=== PATIENT | male | born 1940 | race Caucasian/White ===

== ENCOUNTER 2020-01-28 16:35 | Inpatient (IN) | payer MEDICARE, BC ==
--- NOTE | 2020-01-28 16:56 | ED ---
General Adult HPI - General Chief complaint: Recheck/Abnormal Lab/Rx Stated complaint: abd distention Time Seen by Provider: 01/28/20 16:45 Source: patient, EMS, RN notes reviewed, old records reviewed Mode of arrival: EMS Limitations: physical limitation - History of Present Illness Initial comments: This is a 79-year-old male who was transferred to us from [facility]. Patient has a history of renal failure and ascites. Patient was transferred because they had no one can do a paracentesis and the physician there believe the patient needed a paracentesis. Patient states the belly is so big when he lays down it makes it difficult for him to breathe. Patient I dialysis today at dialysis sitting in a chair he had a very hard time breathing so they sent him to the hospital after dialysis. Patient states she's feeling little bit better now but he still wants to have a paracentesis. Patient denies any recent fever chills or cough per patient denies any chest pain or palpitations. Patient denies any lightheadedness or dizziness. No nausea vomiting diarrhea. Review of Systems ROS Statement: Those systems with pertinent positive or pertinent negative responses have been documented in the HPI. ROS Other: All systems not noted in ROS Statement are negative. Past Medical History Past Medical History: Diabetes Mellitus, Dialysis Past Surgical History: Adenoidectomy, Cardiac Valve Replacement, Coronary Bypass/CABG, Tonsillectomy Smoking Status: Former smoker Past Alcohol Use History: Rare Past Drug Use History: None Reported General Exam - General Exam Comments Initial Comments: GENERAL: Patient is well-developed and well-nourished. Patient is nontoxic and well- hydrated and is in mild distress. ENT: Neck is soft and supple. No significant lymphadenopathy is noted. Oropharynx is clear. Moist mucous membranes. Neck has full range of motion without eliciting any pain. EYES: The sclera were anicteric and conjunctiva were pink and moist. Extraocular movements were intact and pupils were equal round and reactive to light. Eyelids were unremarkable. PULMONARY: Unlabored respirations. Good breath sounds bilaterally. No audible rales rhonchi or wheezing was noted. CARDIOVASCULAR: There is a regular rate and rhythm without any murmurs gallops or rubs. ABDOMEN: Patient's abdomen is consistent with ascites. SKIN: Skin is clear with no lesions or rashes and otherwise unremarkable. NEUROLOGIC: Patient is alert and oriented x3. Cranial nerves II through XII are grossly intact. Motor and sensory are also intact. Normal speech, volume and content. Symmetrical smile. MUSCULOSKELETAL: Normal extremities with adequate strength and full range of motion. 2+ edema bilaterally LYMPHATICS: No significant lymphadenopathy is noted PSYCHIATRIC: Normal psychiatric evaluation. Limitations: physical limitation Course Vital Signs 01/28/20 16:42 Temperature 97.9 F Pulse Rate 79 Respiratory 18 Rate Blood Pressure 100/56 O2 Sat by Pulse 100 Oximetry Medical Decision Making - Medical Decision Making I spoke with our physicians they agreed to admit Disposition Clinical Impression: Ascites, Dyspnea Disposition: ADMITTED IP TO THIS HOSP Referrals: Rita Fontenot MD [Primary Care Provider] - 1-2 days Time of Disposition: 16:56
[2020-01-28] MEDS ORDERED: NALOXONE 0.4 MG/ML 1 ML VIAL IV PRN (18:19)
--- NOTE | 2020-01-28 18:37 | P.HPIM ---
History of Present Illness H&P Date: 01/28/20 Chief Complaint: Shortness of breath 79-year-old male with history of diabetes type 2, hypertension, ascites, congestive heart failure, gout, end-stage renal disease on dialysis Friday, Friday and Friday presented to [facility] from [facility] for urgent paracentesis. Patient states that he gets paracentesis approximately once a month, last time was approximately a month ago. Patient states that laying flat makes it difficult for him to breathe and that he has to lay on his side to feel better. During dialysis today he was started breath as well. Because of that he was sent to [facility] from dialysis. Patient denies any recent fever chills or cough, no chest pain or palpitations. Patient denies any lightheadedness or dizziness. No nausea vomiting diarrhea. Records reviewed from [facility] revealed pulse oximetry of 95% on room air. CBC showed hemoglobin 11, hematocrit 37, platelet count 125,000, creatinine 2.2, sodium 131, lipase 98. CT of the abdomen and pelvis showed large right-sided pleural effusion, consolidation and atelectatic changes in the right lung base. Significant lung volume loss on the right hemothorax. Cardiomegaly. Massive amount of fluids in the peritoneum cavity surrounding the liver and spleen and extending down to the iliac vessels, splenic artery and renal vessels. No free intraperitoneal air. No bowel obstruction. Review of Systems Complete review of system performed, pertinent positives per HPI, otherwise negative Past Medical History Past Medical History: Coronary Artery Disease (CAD), Heart Failure, Diabetes Mellitus, Dialysis Past Surgical History: Adenoidectomy, Cardiac Valve Replacement, Coronary Bypass/CABG, Pacemaker, Tonsillectomy Smoking Status: Former smoker Past Alcohol Use History: Rare Past Drug Use History: None Reported Medications and Allergies Allergies Allergy/AdvReac Type Severity Reaction Status Date / Time No Known Allergies Allergy Verified 01/28/20 18:07 Physical Exam Vitals: Vital Signs Temp Pulse Resp BP Pulse Ox 01/28/20 16:42 97.9 F 79 18 100/56 100 Intake and Output 01/28/20 01/28/20 01/28/20 06:59 14:59 22:59 Other: Weight 79.379 kg Constitutional: No acute distress, conversant, pleasant Eyes:Anicteric sclerae, moist conjunctiva, no lid-lag, PERRLA, ENMT: Oropharynx clear, no erythema, exudates Neck: Supple, FROM, no masses, or JVD, No carotid bruits, No thyromegaly Lungs: Clear to auscultation, Clear to percussion, Normal respiratory effort, no accessory muscle use Cardiovascular: Heart regular in rate and rhythm, No murmurs, gallops, or rubs, No peripheral edema Abdominal: Distended, Nontender, no guarding, rebound or rigidity, Normoactive bowel sounds, No hepatomegaly, No splenomegaly, No palpable mass Skin: Normal temperature, tone, texture, turgor, no induration, No subcutaneous nodules, No rash, lesions, No ulcers Extremities: No digital cyanosis, No clubbing, Pedal pulses intact and symmetrical, Radial pulses intact and symmetrical, No calf tenderness Psychiatric: Alert and oriented to person, place and time, appropriate affect, intact judgement Neuro: Muscles Strength 5/5 in all 4 extremities, Sensation to light touch grossly present throughout, Cranial nerves II-XII grossly intact, no focal sensory deficits Assessment and Plan Plan: Shortness of breath Likely secondary to worsening ascites with right pleural effusion. We'll try diuresis with Lasix 40 mg IV twice a day. Monitor electrolytes Worsening ascites It was unclear to me why patient has the ascites, he states that it is secondary to his bad heart. He denies liver disease. IR to perform paracentesis in a.m. Diabetes type 2 Continue Lantus 23 units daily Add sliding scale insulin with blood sugar checks every before meals and at bedtime Essential hypertension Continue BP meds Stable Coronary artery disease Gout Congestive heart failure, unknown type End-stage renal disease Status post artificial valve All stable Resume meds Patient admitted to observation, expected length of stay less than 2 midnights.
[2020-01-28 20:06] LABS: INR 1.6 (<1.2); Prothrombin Time 15.9 sec (9.0-12.0)
[2020-01-28] MEDS ORDERED: WARFARIN 5 MG TAB PO ONE ×2 (20:30→21:00)
[2020-01-28] MEDS ORDERED: INSULIN DETEMIR (LEVEMIR) 100 UNIT/ML SYR SQ SCH (21:00)
[2020-01-28 21:12] LABS: Glucose,Whole Blood 179 mg/dL (75-99)
[2020-01-28] MEDS: FUROSEMIDE 10 MG/ML 4 ML VIAL IV SCH (22:29)
[2020-01-28] MEDS: INSULIN ASPART (NovoLOG) 100 UNIT/ML VIAL SQ SCH (22:30)
[2020-01-28] MEDS: INSULIN DETEMIR (LEVEMIR) 100 UNIT/ML SYR SQ SCH (22:38)
[2020-01-29 06:08] LABS: HCT 35.1 % (39.0-53.0); HGB 10.8 gm/dL (13.0-17.5); Hypochromasia Marked; MCH 34.2 pg (25.0-35.0); MCHC 30.8 g/dL (31.0-37.0); MCV 111.1 fL (80.0-100.0); Macrocytosis Marked; Mean Platelet Volume 7.3; Platelet Count 137 k/uL (150-450); RBC 3.16 m/uL (4.30-5.90); RDW 14.3 % (11.5-15.5)
[2020-01-29 07:11] LABS: Eosinophils # (M) 0.24 k/uL (0-0.7); Neutrophils # (M) 4.56 k/uL (1.3-7.7); Neutrophils % (M) 76 %; Nucleated Red Blood Cells 0 /100 WBC (0-0); Total Cells Counted 100
[2020-01-29] MEDS: INSULIN ASPART (NovoLOG) 100 UNIT/ML VIAL SQ SCH ×4 (07:19→20:00)
[2020-01-29 07:22] LABS: Glucose,Whole Blood 50 mg/dL (75-99)
[2020-01-29 07:36] LABS: Glucose,Whole Blood 75 mg/dL (75-99)
[2020-01-29] MEDS: FUROSEMIDE 10 MG/ML 4 ML VIAL IV SCH ×2 (07:44→19:58)
[2020-01-29 09:31] LABS: African American GFR (CKD) 21.6 (60.0-200.0); Anion Gap 5.1 mmol/L (4.00-12.00); BUN/Creat Ratio 7.33 Ratio (12.00-20.00); Carbon Dioxide 30.9 mmol/L (21.6-31.8); Non-African American GFR(CKD) 18.6 (60.0-200.0); Phosphorus 3.6 mg/dL (2.4-5.1); Potassium 4.9 mmol/L (3.5-5.5)
[2020-01-29 09:39] LABS: INR 1.33 (0.90-1.11); Prothrombin Time 14.1 sec (9.9-11.9)
--- NOTE | 2020-01-29 11:29 | P.NPCON ---
History of Present Illness - Reason for Consult end stage renal disease - History of Present Illness Reason for consultation: End-stage renal disease History of present illness: A slight patient is a 79-year-old male seen in consultation for end-stage renal disease. He is maintained on hemodialysis on Friday schedule. Right chest permacath. Patient has an AV fistula which is not completely matured yet. Patient recently moved from [place]. Patient has history of systolic CHF with ejection fraction of 25% status post AICD placement. Patient's blood pressure tends to run low and is maintained on midodrine outpatient. Additionally he gets paracentesis about once a month. Patient states he's due for paracentesis now but was unable to get it done outpatient. He was advised to come to the hospital from the dialysis unit. He is currently sitting up in bed. Does complain of abdominal fullness. Oral intake is fair. No vomiting or diarrhea. No fever or chills. No chest pain or shortness of breath. He did receive hemodialysis yesterday. Vital signs are stable. General: The patient appeared well nourished and normally developed. HEENT: Head exam is unremarkable. Neck is without jugular venous distension. LUNGS: Breath sounds decreased. HEART: Rate and Rhythm are regular. ABDOMEN: Soft, distention noted. EXTREMITITES: Trace edema. Past Medical History Past Medical History: Coronary Artery Disease (CAD), Heart Failure, Diabetes Mellitus, Dialysis, Eye Disorder, Renal Disease Additional Past Medical History / Comment(s): Diabetes diagnosed 2012 Started on Metformin and 4 years later on insulin. Renal Failure diagnosed 2012 Started Hemodialysis with fistula right brachial placed at that time However, per pt this has not been utilized "My dialysis is completed on Fri- & Friday at [facility] in [place] per Dr Mahmood - They use the right jugular catheter". Heart Failure diagnosed 7 or 8 yrs ago under [facility] [employer] in [place] Since moving to [place] saw [facility] Dr Armstrong recently had an ECHO with EF results: 30% per pt. . History of Any Multi-Drug Resistant Organisms: None Reported Past Surgical History: Adenoidectomy, Cardiac Valve Replacement, Coronary Bypass/CABG, Heart Catheterization With Stent, Pacemaker, Tonsillectomy Additional Past Surgical History / Comment(s): Tonsils & Adnoids removd 194. Angioplasty with stent placement unknown year of placement (Multiple stents). Jaw resection years ago. Appendectomy- 1950. CABG 2009 in [facility]. Aortic Valve Replacement 1999. Implantable Cardiac Defibrillator and PAcemaker 2014 Janiya Past Anesthesia/Blood Transfusion Reactions: No Reported Reaction Date of Last Stent Placement:: Unknown Type of Cardiac Device: AICD Device Placement Date:: 2014 Past Psychological History: No Psychological Hx Reported Smoking Status: Former smoker Past Alcohol Use History: Rare Past Drug Use History: None Reported - Past Family History Father Family Medical History: Cancer Mother Family Medical History: Coronary Artery Disease (CAD) Medications and Allergies Home Medications Medication Instructions Recorded Confirmed Type Albuterol Sulfate [Ventolin HFA] 1 - 2 puff INHALATION RT-Q6H PRN 01/28/20 01/28/20 History Atorvastatin Calcium [Lipitor] 40 mg PO HS 01/28/20 01/28/20 History Bee Pollen 550 mg PO DAILY 01/28/20 01/28/20 History Carvedilol [Coreg] 3.125 mg PO BID 01/28/20 01/28/20 History Cholecalciferol [Vitamin D3 (25 1,000 unit PO HS 01/28/20 01/28/20 History Mcg = 1000 Iu)] Furosemide [Lasix] 40 mg PO BID PRN 01/28/20 01/28/20 History Insulin Glargine,Hum.rec.anlog 23 unit SQ HS 01/28/20 01/28/20 History [Lantus Solostar] Midodrine HCl [ProAmatine] 10 mg PO TID PRN 01/28/20 01/28/20 History Multivitamins, Thera [Multivitamin 1 tab PO DAILY 01/28/20 01/28/20 History (formulary)] Warfarin Sodium 2.5 mg PO SUMOTUWETHSA 01/28/20 01/28/20 History allopurinoL [Zyloprim] 100 mg PO DAILY 01/28/20 01/28/20 History hydrOXYzine HCL [Atarax] 25 mg PO TID PRN 01/28/20 01/28/20 History metOLazone [Zaroxolyn] 5 mg PO DAILY PRN 01/28/20 01/28/20 History Allergies Allergy/AdvReac Type Severity Reaction Status Date / Time No Known Allergies Allergy Verified 01/28/20 18:07 Physical Exam Vitals: Vital Signs Temp Pulse Pulse Resp BP BP Pulse Ox 01/29/20 07:00 98 F 70 20 103/60 95 01/29/20 00:10 97.6 F 71 16 118/70 98 01/28/20 22:55 20 01/28/20 21:41 97.6 F 67 18 117/66 97 01/28/20 21:00 96 20 01/28/20 19:19 97.9 F 70 18 101/58 100 01/28/20 17:49 70 18 101/58 100 01/28/20 16:49 70 18 102/53 100 01/28/20 16:42 97.9 F 79 18 100/56 100 Intake and Output 01/28/20 01/29/20 01/29/20 22:59 06:59 14:59 Intake Total 240 Output Total 200 Balance 40 Intake: Oral 240 Output: Urine 200 Other: # Voids 0 # Bowel Movements 0 Weight 79.379 kg 89.1 kg Results - Lab Results Most recent lab results Calcium 8.0 mg/dL (8.7-10.3) L 01/29/20 05:28 Phosphorus 3.6 mg/dL (2.4-5.1) 01/29/20 05:28 Magnesium 2.0 mg/dL (1.5-2.4) 01/29/20 05:28 01/29/20 05:28 01/29/20 05:28 Assessment and Plan Plan: Assessment: 1. End-stage renal disease maintained on hemodialysis on Friday schedule via permacath. He does have a maturing AV fistula. 2. Acute on chronic systolic CHF with ejection fraction of 25% status post AICD placement. 3. Ascites requiring paracentesis monthly. 4. Chronic hypotension maintained on midodrine. 5. Diabetes mellitus. Plan: Hemodialysis tomorrow due to holiday schedule. Check abdominal ultrasound. Plan for paracentesis per interventional radiology. I will give him 25 g of albumin pre-and post-paracentesis. Patient will also be given a standing order for paracentesis to be done outpatient. Thank you for the consultation. I will continue to follow the patient with you during his hospital stay.
[2020-01-29 11:31] LABS: Glucose,Whole Blood 181 mg/dL (75-99)
[2020-01-29] MEDS: MIDODRINE 5 MG TAB PO SCH ×2 (12:30→17:18)
[2020-01-29] MEDS ORDERED: HEPARIN SODIUM,PORCINE 5,000 UNIT/ML 1 ML VIAL IV PRN (15:52)
[2020-01-29] MEDS ORDERED: HEPARIN SOD,PORK IN 0.45% NACL 25,000 UNIT in 0.45% NACL 1 250ML.BAG IV SCH (16:00)
--- NOTE | 2020-01-29 16:02 | P.PN ---
Subjective Progress Note Date: 01/29/20 Patient is doing fairly well today. He was sitting at the side of the bed when I saw him. He reported having difficulty breathing and his abdomen is very distended. Objective - Vital Signs Vital signs: Vital Signs Temp 97.5 F L 01/29/20 12:20 Pulse 70 01/29/20 12:20 Resp 18 01/29/20 12:20 BP 104/63 01/29/20 12:20 Pulse Ox 100 01/29/20 12:20 Intake & Output 01/28/20 01/29/20 01/29/20 18:59 06:59 18:59 Intake Total 240 Output Total 200 Balance 40 Weight 79.379 kg 89.1 kg Intake: Oral 240 Output: Urine 200 Other: # Voids 0 # Bowel Movements 0 - Exam General: The patient is awake and alert, in no distress Eye: there is normal conjunctiva bilaterally. Neck: The neck is supple, there is no JVD. Cardiovascular: Normal S1-S2, no S3-S4, no murmurs. Respiratory: Lungs clear to auscultation bilaterally Gastrointestinal: Abdomen is significantly distended with evidence of large ascites Musculoskeletal: There is +1 pedal edema. Neurological:. Speech is normal. Skin: Skin is warm and dry - Labs CBC & Chem 7: 01/29/20 05:28 01/29/20 05:28 Labs: Abnormal Lab Results - Last 24 Hours (Table) 01/28/20 01/28/20 01/29/20 Range/Units 19:49 21:10 05:28 RBC 3.16 L (4.30-5.90) m/uL Hgb 10.8 L (13.0-17.5) gm/dL Hct 35.1 L (39.0-53.0) % MCV 111.1 H (80.0-100.0) fL MCHC 30.8 L (31.0-37.0) g/dL Plt Count 137 L (150-450) k/uL Lymphocytes # (Manual) 0.90 L (1.0-4.8) k/uL Macrocytosis Marked A PT 15.9 H (9.0-12.0) sec INR 1.6 H (<1.2) Creatinine (0.6-1.5) mg/dL Est GFR (CKD-EPI)AfAm (60.0-200.0) Est GFR (CKD-EPI)NonAf (60.0-200.0) BUN/Creatinine Ratio (12.00-20.00) Ratio Glucose (70-110) mg/dL POC Glucose (mg/dL) 179 H (75-99) mg/dL Calcium (8.7-10.3) mg/dL 01/29/20 01/29/20 01/29/20 Range/Units 05:28 05:28 07:18 RBC (4.30-5.90) m/uL Hgb (13.0-17.5) gm/dL Hct (39.0-53.0) % MCV (80.0-100.0) fL MCHC (31.0-37.0) g/dL Plt Count (150-450) k/uL Lymphocytes # (Manual) (1.0-4.8) k/uL Macrocytosis PT 14.1 H (9.0-12.0) sec INR 1.33 H (<1.2) Creatinine 3.0 H (0.6-1.5) mg/dL Est GFR (CKD-EPI)AfAm 21.6 L (60.0-200.0) Est GFR (CKD-EPI)NonAf 18.6 L (60.0-200.0) BUN/Creatinine Ratio 7.33 L (12.00-20.00) Ratio Glucose 62 L (70-110) mg/dL POC Glucose (mg/dL) 50 L (75-99) mg/dL Calcium 8.0 L (8.7-10.3) mg/dL 01/29/20 Range/Units 11:26 RBC (4.30-5.90) m/uL Hgb (13.0-17.5) gm/dL Hct (39.0-53.0) % MCV (80.0-100.0) fL MCHC (31.0-37.0) g/dL Plt Count (150-450) k/uL Lymphocytes # (Manual) (1.0-4.8) k/uL Macrocytosis PT (9.0-12.0) sec INR (<1.2) Creatinine (0.6-1.5) mg/dL Est GFR (CKD-EPI)AfAm (60.0-200.0) Est GFR (CKD-EPI)NonAf (60.0-200.0) BUN/Creatinine Ratio (12.00-20.00) Ratio Glucose (70-110) mg/dL POC Glucose (mg/dL) 181 H (75-99) mg/dL Calcium (8.7-10.3) mg/dL Assessment and Plan Assessment: This is a 79-year-old male with complex past medical history below presented to the emergency room with worsening shortness of breath and worsening ascites. Patient is currently placed on observation for further management of his medical problems noted below. 1. Worsening ascites, requiring monthly paracentesis. Seems like ascites is cardiac in origin according to patient. IR consulted. Plan for paracentesis on Friday. 2. End-stage renal disease on hemodialysis, MWF scheduled, seen and evaluated by nephrology 3. History of mechanical aortic valve replacement, patient said that he has been holding his Coumadin for anticipated paracentesis. Advised him that he should not be off of blood thinners. He recently established care with Dr. Benson after he moved from [place]. Echocardiogram done in cardiology office is not available for me to review. I will consult with Dr. Benson to figure out a strategy for this patient getting paracentesis without interruption in his anticoagulation. I told the patient that he needed to be admitted to the hospital for IV heparin treatment each time he needs paracentesis or we need to find him an interventional radiologist that is willing to do paracentesis while patient is therapeutic on Coumadin. Literature review showed no increased risk of bleeding with paracentesis on patient with anticoagulation 4. Acute systolic heart failure exacerbation, started on IV Lasix. Further fluid management with dialysis. 5. Underlying cardiomyopathy (unknown type) his EF of 25% status post AICD placement 6. Type 2 diabetes, continue home dose of insulin Today, I would order low intensity IV heparin drip as INR is subtherapeutic.
[2020-01-29 17:16] LABS: Glucose,Whole Blood 94 mg/dL (75-99)
[2020-01-29 17:54] LABS: Basophils # (A) 0.2 k/uL (0-0.2); Basophils % (A) 2 %; Eosinophils # (A) 0.2 k/uL (0-0.7); Eosinophils % (A) 3 %; HCT 37.3 % (39.0-53.0); HGB 11.3 gm/dL (13.0-17.5); Hypochromasia Marked; Lymphocytes # (A) 0.4 k/uL (1.0-4.8); Lymphocytes % (A) 5 %; MCH 33.8 pg (25.0-35.0); MCHC 30.4 g/dL (31.0-37.0); MCV 111.1 fL (80.0-100.0); Macrocytosis Marked; Mean Platelet Volume 7.6; Monocytes # (A) 0.7 k/uL (0-1.0); Monocytes % (A) 10 %; Neutrophils # (A) 5.3 k/uL (1.3-7.7); Neutrophils % (A) 76 %; Platelet Count 147 k/uL (150-450); RBC 3.36 m/uL (4.30-5.90); RDW 14.2 % (11.5-15.5)
[2020-01-29 19:53] LABS: Glucose,Whole Blood 102 mg/dL (75-99)
[2020-01-29] MEDS: INSULIN DETEMIR (LEVEMIR) 100 UNIT/ML SYR SQ SCH (20:37)
[2020-01-29] MEDS ORDERED: traMADol 50 MG TAB PO STA (22:17)
[2020-01-29] MEDS ORDERED: IBUPROFEN 400 MG TAB PO STA (22:18)
[2020-01-30] MEDS ORDERED: MORPHINE SULFATE 2 MG/ML SYRINGE IVP PRN (01:34)
[2020-01-30 06:11] LABS: Partial Thromboplastin Time 79.4 sec (22.0-30.0)
[2020-01-30 06:29] LABS: INR 1.4 (<1.2)
[2020-01-30 06:38] LABS: HCT 35.7 % (39.0-53.0); HGB 10.9 gm/dL (13.0-17.5); Hypochromasia Marked; MCH 34.1 pg (25.0-35.0); MCHC 30.5 g/dL (31.0-37.0); Macrocytosis Marked; Mean Platelet Volume 7.1; Platelet Count 131 k/uL (150-450); RBC 3.19 m/uL (4.30-5.90); RDW 14.1 % (11.5-15.5); WBC 6.6 k/uL (3.8-10.6)
[2020-01-30 07:19] LABS: Glucose,Whole Blood 111 mg/dL (75-99)
[2020-01-30 07:21] LABS: Eosinophils # (M) 0.46 k/uL (0-0.7); Lymphocytes # (M) 0.33 k/uL (1.0-4.8); Monocytes # (M) 0.79 k/uL (0-1.0); Neutrophils # (M) 5.02 k/uL (1.3-7.7); Neutrophils % (M) 76 %; Nucleated Red Blood Cells 0 /100 WBC (0-0); Total Cells Counted 100
[2020-01-30 07:22] LABS: Target Cells Present
[2020-01-30] MEDS: INSULIN ASPART (NovoLOG) 100 UNIT/ML VIAL SQ SCH ×4 (07:26→21:57)
[2020-01-30] MEDS: MIDODRINE 5 MG TAB PO SCH ×3 (07:34→16:57)
[2020-01-30] MEDS: FUROSEMIDE 10 MG/ML 4 ML VIAL IV SCH ×2 (07:40→21:56)
[2020-01-30 10:06] LABS: African American GFR (CKD) 17.3 (60.0-200.0); BUN/Creat Ratio 8.33 Ratio (12.00-20.00); Calcium 7.9 mg/dL (8.7-10.3); Non-African American GFR(CKD) 14.9 (60.0-200.0); Potassium 5.8 mmol/L (3.5-5.5)
--- NOTE | 2020-01-30 10:22 | P.PN ---
Subjective Patient is seen in follow-up for end-stage renal disease. He is maintained on hemodialysis on Friday schedule. Scheduled for paracentesis tomorrow. Feels that his abdomen is full of fluid. No chest pain. Vital signs are stable. General: The patient appeared well nourished and normally developed. HEENT: Head exam is unremarkable. Neck is without jugular venous distension. LUNGS: Breath sounds decreased. HEART: Rate and Rhythm are regular. ABDOMEN: Nontender. Distention noted. EXTREMITITES: 1+ edema. Objective - Vital Signs Vital signs: Vital Signs Temp 97.5 F L 01/30/20 07:33 Pulse 70 01/30/20 07:33 Resp 14 01/30/20 07:33 BP 132/69 01/30/20 07:33 Pulse Ox 96 01/30/20 07:33 Intake & Output 01/29/20 01/30/20 01/30/20 18:59 06:59 18:59 Intake Total 121.663 Balance 121.663 Weight 89 kg Intake: Intake, IV Titration 121.663 Amount Heparin Sod,Pork in 0.45% 121.663 NaCl 25,000 unit In 0.45 % NaCl 1 250ml.bag @ 11. 223 UNITS/KG/HR 10 mls/hr IV .Q24H ESTEVAN Rx#: [id number] Other: # Voids 1 1 # Bowel Movements 0 - Labs CBC & Chem 7: 01/30/20 05:19 01/30/20 05:19 Labs: Abnormal Lab Results - Last 24 Hours (Table) 01/29/20 01/29/20 01/29/20 Range/Units 11:26 17:00 19:51 RBC 3.36 L (4.30-5.90) m/uL Hgb 11.3 L (13.0-17.5) gm/dL Hct 37.3 L (39.0-53.0) % MCV 111.1 H (80.0-100.0) fL MCHC 30.4 L (31.0-37.0) g/dL Plt Count 147 L (150-450) k/uL Lymphocytes # 0.4 L (1.0-4.8) k/uL Lymphocytes # (Manual) (1.0-4.8) k/uL Macrocytosis Marked A PT (9.0-12.0) sec INR (<1.2) APTT (22.0-30.0) sec Sodium (135-145) mmol/L Potassium (3.5-5.5) mmol/L BUN (9.0-27.0) mg/dL Creatinine (0.6-1.5) mg/dL Est GFR (CKD-EPI)AfAm (60.0-200.0) Est GFR (CKD-EPI)NonAf (60.0-200.0) BUN/Creatinine Ratio (12.00-20.00) Ratio Glucose (70-110) mg/dL POC Glucose (mg/dL) 181 H 102 H (75-99) mg/dL Calcium (8.7-10.3) mg/dL 01/29/20 01/30/20 01/30/20 Range/Units 22:59 05:19 05:19 RBC 3.19 L (4.30-5.90) m/uL Hgb 10.9 L (13.0-17.5) gm/dL Hct 35.7 L (39.0-53.0) % MCV 112.0 H (80.0-100.0) fL MCHC 30.5 L (31.0-37.0) g/dL Plt Count 131 L (150-450) k/uL Lymphocytes # (1.0-4.8) k/uL Lymphocytes # (Manual) 0.33 L (1.0-4.8) k/uL Macrocytosis Marked A PT 14.0 H (9.0-12.0) sec INR 1.4 H (<1.2) APTT 87.9 H 79.4 H (22.0-30.0) sec Sodium (135-145) mmol/L Potassium (3.5-5.5) mmol/L BUN (9.0-27.0) mg/dL Creatinine (0.6-1.5) mg/dL Est GFR (CKD-EPI)AfAm (60.0-200.0) Est GFR (CKD-EPI)NonAf (60.0-200.0) BUN/Creatinine Ratio (12.00-20.00) Ratio Glucose (70-110) mg/dL POC Glucose (mg/dL) (75-99) mg/dL Calcium (8.7-10.3) mg/dL 01/30/20 01/30/20 Range/Units 05:19 07:13 RBC (4.30-5.90) m/uL Hgb (13.0-17.5) gm/dL Hct (39.0-53.0) % MCV (80.0-100.0) fL MCHC (31.0-37.0) g/dL Plt Count (150-450) k/uL Lymphocytes # (1.0-4.8) k/uL Lymphocytes # (Manual) (1.0-4.8) k/uL Macrocytosis PT (9.0-12.0) sec INR (<1.2) APTT (22.0-30.0) sec Sodium 133 L (135-145) mmol/L Potassium 5.8 H (3.5-5.5) mmol/L BUN 30.0 H (9.0-27.0) mg/dL Creatinine 3.6 H (0.6-1.5) mg/dL Est GFR (CKD-EPI)AfAm 17.3 L (60.0-200.0) Est GFR (CKD-EPI)NonAf 14.9 L (60.0-200.0) BUN/Creatinine Ratio 8.33 L (12.00-20.00) Ratio Glucose 121 H (70-110) mg/dL POC Glucose (mg/dL) 111 H (75-99) mg/dL Calcium 7.9 L (8.7-10.3) mg/dL Assessment and Plan Plan: Assessment: 1. End-stage renal disease maintained on hemodialysis on Friday schedule via permacath. He does have a maturing AV fistula. 2. Acute on chronic systolic CHF with ejection fraction of 25% status post AICD placement. 3. Ascites requiring paracentesis monthly. 4. Chronic hypotension maintained on midodrine. 5. Diabetes mellitus. 6. Hyperkalemia secondary to chronic kidney disease. Plan: Short hemodialysis today for hyperkalemia and fluid overload. Plan for another treatment tomorrow per his outpatient schedule. Plan for paracentesis tomorrow per interventional radiology. I will give him 25 g of albumin pre-and post-paracentesis. Patient will also be given a standing order for paracentesis to be done outpatient. He is being started on IV heparin for subtherapeutic INR.
[2020-01-30] MEDS ORDERED: metOLazone 5 MG TAB PO PRN (10:30)
[2020-01-30 12:03] LABS: Glucose,Whole Blood 138 mg/dL (75-99)
--- NOTE | 2020-01-30 12:46 | P.CRDCN ---
History of Present Illness History of present illness: HISTORY OF PRESENTING ILLNESS This is a pleasant 79-year-old male past medical history significant for coronary artery disease status post bypass grafting, aortic valve replacement, chronic persistent atrial fibrillation on Coumadin, ischemic cardiomyopathy status post Medtronic AICD, COPD, end-stage renal disease on hemodialysis and dyslipidemia. He follows in the office with Dr. Armstrong. He recently moved here from [place] and established in the office earlier this month. An echocardiogram that was obtained while in [place] and November revealed severe LV dysfunction with ejection fraction 30-35%, RV systolic dysfunction, prosthetic aortic valve with mild aortic regurgitation, moderate mitral and tricuspid regurgitation and mild pulmonary hypertension. The patient states he has a mechanical aortic valve. He has recurrent ascites requiring monthly paracentesis. He has been holding his Coumadin since Friday in anticipation of paracentesis. He presented to the emergency department at [facility] with complaints of abdominal distention and shortness of breath. He has yet to establish a routine for his paracentesis but he states last time it was done it was done at [facility] that he went there hoping to have it done. He was sent here for further evaluation. He is seen and examined resting comfortably laying flat in bed in no acute distress. He states his abdomen feels full and is uncomfortable in any other position and l aying flat on his right side. He denies chest pain, dizziness or palpitations. No EKG was obtained on admission. He underwent a CT of his abdomen and pelvis [facility] revealing large right-sided pleural effusion, consolidation and atelectasis at the right lung base, significant lung volume loss on the right, cardiomegaly, massive amounts of fluids in the peritoneal cavity surrounding the liver and the spleen and extending down to the iliac vessels. The patient states he has been told that the reason he gets ascites is because of his heart. He denies any primary liver disease. Laboratory data reviewed, WBC 6.6, hemoglobin 10.9, platelets 131, INR 1.4, sodium 133, potassium 5.8, creatinine 3.6. Current daily cardiac medications include carvedilol 3.125 mg twice a day, atorvastatin 40 mg at bedtime, Lasix 40 mg twice a day as needed, Zaroxolyn 5 mg daily as needed and Coumadin 2.5 mg 6 days a week. Most recent cardiac catheterization performed in 2012 revealed significant distal left main disease, significant ostial circumflex disease, patent stent of the LAD and RCA free of significant disease. REVIEW OF SYSTEMS At the time of my exam: CONSTITUTIONAL: Denies fever or chills. CARDIOVASCULAR: Complains of shortness of breath. Denies chest pain, orthopnea, PND or palpitations. RESPIRATORY: Denies cough. GASTROINTESTINAL: The plans of abdominal fullness and swelling. Denies abdominal pain, diarrhea, constipation, nausea or vomiting. MUSCULOSKELETAL: Denies myalgias. NEUROLOGIC: Denies numbness, tingling or weakness. ENDOCRINE: Denies fatigue, weight change, polydipsia or polyurina. GENITOURINARY: Denies burning, hematuria or urgency with micturation. HEMATOLOGIC: Denies history of anemia or bleeding. PHYSICAL EXAMINATION Blood pressure 119/75 heart rate 70 afebrile and maintaining oxygen saturation on nasal cannula. CONSTITUTIONAL: No apparent distress. HEENT: Head is normocephalic. Pupils are equal, round. Sclerae anicteric. Mucous membranes of the mouth are moist. No JVD. No carotid bruit. CHEST EXAMINATION: Bibasilar fine rales, diminished on the right, no rhonchi or wheezes. No chest wall tenderness is noted on palpation or with deep breathing. HEART EXAMINATION: Irregular rate and rhythm. S1, S2 heard. Distant heart sounds. Soft mechanical click at the base. ABDOMEN: Firm, tender and distented. Positive bowel sounds. EXTREMITIES: 2+ peripheral pulses, trace bilateral lower extremity edema and no calf tenderness. Multiple areas of skin tears and scabs. NEUROLOGIC EXAMINATION: Patient is awake, alert and oriented x3. ASSESSMENT Acute on chronic systolic heart failure Recurrent ascites of unknown etiology, denies liver disease Pleural effusion Coronary artery disease s/p bypass grafting, REYNA to LAD 2012 Ischemic cardiomyopathy status post AICD Hyperkalemia Hypertension Dyslipidemia Valvular heart disease status post mechanical aortic valve replacement COPD End stage renal disease on hemodialysis PLAN The patient has no IV access at this time and poor veins. The nurse is attempting to call anesthesia for assistance. In the meantime we will given one dose of SQ lovenox tonight and continue to hold his coumadin for paracentesis tomorrow. If the procedure becomes delayed he may need to re-initiate heparin inifusion. Resume coumadin thereafter. Continue to diurese with IV lasix. Obtain baseline EKG. Dialysis per nephrology. Follow electrolytes and renal function in the morning. Repeat chest xray in the morning. Further recommendations to follow based on clinical course. Thank you kindly for this consultation. Nurse Practitioner note has been reviewed, I agree with a documented findings and plan of care. Patient was seen and examined. Past Medical History Past Medical History: Coronary Artery Disease (CAD), Heart Failure, Diabetes Mellitus, Dialysis, Eye Disorder, Renal Disease Additional Past Medical History / Comment(s): Diabetes diagnosed 2012 Started on Metformin and 4 years later on insulin. Renal Failure diagnosed 2012 Started Hemodialysis with fistula right brachial placed at that time However, per pt this has not been utilized "My dialysis is completed on Fri- & Friday at [facility] in [place] per Dr Mahmood - They use the right jugular catheter". Heart Failure diagnosed 7 or 8 yrs ago under [facility] [employer] in [place] Since moving to [place] saw [facility] Dr Armstrong recently had an ECHO with EF results: 30% per pt. . History of Any Multi-Drug Resistant Organisms: None Reported Past Surgical History: Adenoidectomy, Cardiac Valve Replacement, Coronary Bypass/CABG, Heart Catheterization With Stent, Pacemaker, Tonsillectomy Additional Past Surgical History / Comment(s): Tonsils & Adnoids removd 194. Angioplasty with stent placement unknown year of placement (Multiple stents). Jaw resection years ago. Appendectomy- 1949. CABG 2009 in [facility]. Aortic Valve Replacement 1999. Implantable Cardiac Defibrillator and PAcemaker 2014 [place] Past Anesthesia/Blood Transfusion Reactions: No Reported Reaction Date of Last Stent Placement:: Unknown Type of Cardiac Device: AICD Device Placement Date:: 2014 Past Psychological History: No Psychological Hx Reported Smoking Status: Former smoker Past Alcohol Use History: Rare Past Drug Use History: None Reported - Past Family History Father Family Medical History: Cancer Mother Family Medical History: Coronary Artery Disease (CAD) Medications and Allergies Home Medications Medication Instructions Recorded Confirmed Type Albuterol Sulfate [Ventolin HFA] 1 - 2 puff INHALATION RT-Q6H PRN 01/28/20 01/28/20 History Atorvastatin Calcium [Lipitor] 40 mg PO HS 01/28/20 01/28/20 History Bee Pollen 550 mg PO DAILY 01/28/20 01/28/20 History Carvedilol [Coreg] 3.125 mg PO BID 01/28/20 01/28/20 History Cholecalciferol [Vitamin D3 (25 1,000 unit PO HS 01/28/20 01/28/20 History Mcg = 1000 Iu)] Furosemide [Lasix] 40 mg PO BID PRN 01/28/20 01/28/20 History Insulin Glargine,Hum.rec.anlog 23 unit SQ HS 01/28/20 01/28/20 History [Lantus Solostar] Midodrine HCl [ProAmatine] 10 mg PO TID PRN 01/28/20 01/28/20 History Multivitamins, Thera [Multivitamin 1 tab PO DAILY 01/28/20 01/28/20 History (formulary)] Warfarin Sodium 2.5 mg PO SUMOTUWETHSA 01/28/20 01/28/20 History allopurinoL [Zyloprim] 100 mg PO DAILY 01/28/20 01/28/20 History hydrOXYzine HCL [Atarax] 25 mg PO TID PRN 01/28/20 01/28/20 History metOLazone [Zaroxolyn] 5 mg PO DAILY PRN 01/28/20 01/28/20 History Allergies Allergy/AdvReac Type Severity Reaction Status Date / Time No Known Allergies Allergy Verified 01/28/20 18:07 Physical Exam Vitals: Vital Signs Temp Pulse Resp BP Pulse Ox 01/30/20 11:45 70 14 119/75 100 01/30/20 07:33 97.5 F L 70 14 132/69 96 01/30/20 03:17 97.4 F L 70 18 97/61 100 01/29/20 20:18 98.5 F 71 19 107/68 100 01/29/20 17:19 70 20 125/76 96 Intake and Output 01/29/20 01/30/20 01/30/20 22:59 06:59 14:59 Intake Total 121.663 21.7 Balance 121.663 21.7 Intake: Intake, IV Titration 121.663 21.7 Amount Heparin Sod,Pork in 0.45% 121.663 21.7 NaCl 25,000 unit In 0.45 % NaCl 1 250ml.bag @ 11. 223 UNITS/KG/HR 10 mls/hr IV .Q24H [facility] Rx#: [id number] Other: # Voids 1 1 # Bowel Movements 0 Weight 89 kg Results 01/30/20 05:19 01/30/20 05:19 Coagulation 01/29/20 01/29/20 01/30/20 Range/Units 17:00 22:59 05:19 PT Cancelled 14.0 H APTT 25.9 87.9 H 79.4 H (22.0-30.0) sec CBC 01/29/20 01/30/20 Range/Units 17:00 05:19 WBC 7.0 6.6 (3.8-10.6) k/uL RBC 3.36 L 3.19 L (4.30-5.90) m/uL Hgb 11.3 L 10.9 L (13.0-17.5) gm/dL Hct 37.3 L 35.7 L (39.0-53.0) % Plt Count 147 L 131 L (150-450) k/uL Comprehensive Metabolic Panel 01/30/20 Range/Units 05:19 Sodium 133 L (135-145) mmol/L Potassium 5.8 H (3.5-5.5) mmol/L Chloride 96 (96-109) mmol/L Carbon Dioxide 29.0 (21.6-31.8) mmol/L BUN 30.0 H (9.0-27.0) mg/dL Creatinine 3.6 H (0.6-1.5) mg/dL Glucose 121 H (70-110) mg/dL Calcium 7.9 L (8.7-10.3) mg/dL Current Medications Generic Name Dose Route Start Last Admin Trade Name Freq PRN Reason Stop Dose Admin Atorvastatin Calcium 40 mg 01/30/20 21:00 Atorvastatin 40 Mg Tab PO HS [facility] Carvedilol 3.125 mg 01/30/20 17:30 Carvedilol 3.125 Mg Tab PO BID-W/MEALS [facility] Enoxaparin Sodium 90 mg 01/30/20 18:00 Enoxaparin 100 Mg/Ml Syringe SQ 01/30/20 18:01 ONCE ONE Furosemide 40 mg 01/28/20 21:00 01/30/20 07:40 Furosemide 10 Mg/Ml 4 Ml Vial IV 40 mg Q12HR [facility] Administration Heparin Sodium (Porcine) 0 unit 01/29/20 15:52 Heparin Sodium,Porcine 5,000 Unit/Ml 1 Ml Vial IV PER PROTOCOL PRN Low PTT Protocol Heparin Sodium/Sodium Chloride 250 mls @ 10 mls/hr 01/29/20 16:00 01/30/20 10:15 25,000 unit/ Sodium Chloride IV 0 units/kg/hr .Q24H [facility] 0 mls/hr Titration Protocol 11.223 UNITS/KG/HR Albumin Human 50 ml/ IV 50 mls @ 50 mls/hr 01/31/20 09:00 Solution IVPB 01/31/20 10:59 Q1H [facility] Albumin Human 50 ml/ IV 50 mls @ 50 mls/hr 01/31/20 15:00 Solution IVPB 01/31/20 16:59 Q1H [facility] Insulin Aspart 0 unit 01/28/20 21:00 01/30/20 11:58 Insulin Aspart (Novolog) 100 Unit/Ml Vial SQ Not Given ACHS [facility] Protocol Insulin Detemir 27 unit 01/28/20 21:00 01/29/20 20:37 Insulin Detemir (Levemir) 100 Unit/Ml Syr SQ Not Given HS [facility] Metolazone 5 mg 01/30/20 10:30 Metolazone 5 Mg Tab PO DAILY PRN Edema Midodrine 10 mg 01/29/20 12:30 01/30/20 11:58 Midodrine 5 Mg Tab PO 10 mg AC-TID [facility] Administration Miscellaneous Information 0 each 01/28/20 18:57 Warfarin Per Pharmacy MISCELLANE DIRECTED PRN PER PROTOCOL Morphine Sulfate 1 mg 01/30/20 01:34 01/30/20 04:29 Morphine Sulfate 2 Mg/Ml Syringe IVP 1 mg Q4H PRN Administration Pain/Discomfort Naloxone HCl 0.2 mg 01/28/20 18:19 Naloxone 0.4 Mg/Ml 1 Ml Vial IV Q2M PRN Opioid Reversal Intake and Output 01/29/20 01/30/20 01/30/20 22:59 06:59 14:59 Intake Total 121.663 21.7 Balance 121.663 21.7 Intake: Intake, IV Titration 121.663 21.7 Amount Heparin Sod,Pork in 0.45% 121.663 21.7 NaCl 25,000 unit In 0.45 % NaCl 1 250ml.bag @ 11. 223 UNITS/KG/HR 10 mls/hr IV .Q24H [facility] Rx#: [id number] Other: # Voids 1 1 # Bowel Movements 0 Weight 89 kg 01/30/20 05:19 01/30/20 05:19
--- NOTE | 2020-01-30 13:31 | P.PN ---
Subjective Progress Note Date: 01/30/20 Patient is awake and alert. He is feeling about the same compared to yesterday. His distended abdomen is bothering him significantly. Objective - Vital Signs Vital signs: Vital Signs Temp 97.5 F L 01/30/20 07:33 Pulse 70 01/30/20 11:45 Resp 14 01/30/20 11:45 BP 119/75 01/30/20 11:45 Pulse Ox 100 01/30/20 11:45 Intake & Output 01/29/20 01/30/20 01/30/20 18:59 06:59 18:59 Intake Total 121.663 21.7 Balance 121.663 21.7 Weight 89 kg Intake: Intake, IV Titration 121.663 21.7 Amount Heparin Sod,Pork in 0.45% 121.663 21.7 NaCl 25,000 unit In 0.45 % NaCl 1 250ml.bag @ 11. 223 UNITS/KG/HR 10 mls/hr IV .Q24H [facility] Rx#: [id number] Other: # Voids 1 1 1 # Bowel Movements 0 - Exam General: The patient is awake and alert, in no distress Eye: there is normal conjunctiva bilaterally. Neck: The neck is supple, there is no JVD. Cardiovascular: Normal S1-S2, no S3-S4, no murmurs. Respiratory: Lungs clear to auscultation bilaterally Gastrointestinal: Abdomen is significantly distended with evidence of large ascites Musculoskeletal: There is +1 pedal edema. Neurological:. Speech is normal. Skin: Skin is warm and dry - Labs CBC & Chem 7: 01/30/20 05:19 01/30/20 05:19 Labs: Abnormal Lab Results - Last 24 Hours (Table) 01/29/20 01/29/20 01/29/20 Range/Units 17:00 19:51 22:59 RBC 3.36 L (4.30-5.90) m/uL Hgb 11.3 L (13.0-17.5) gm/dL Hct 37.3 L (39.0-53.0) % MCV 111.1 H (80.0-100.0) fL MCHC 30.4 L (31.0-37.0) g/dL Plt Count 147 L (150-450) k/uL Lymphocytes # 0.4 L (1.0-4.8) k/uL Lymphocytes # (Manual) (1.0-4.8) k/uL Macrocytosis Marked A PT (9.0-12.0) sec INR (<1.2) APTT 87.9 H (22.0-30.0) sec Sodium (135-145) mmol/L Potassium (3.5-5.5) mmol/L BUN (9.0-27.0) mg/dL Creatinine (0.6-1.5) mg/dL Est GFR (CKD-EPI)AfAm (60.0-200.0) Est GFR (CKD-EPI)NonAf (60.0-200.0) BUN/Creatinine Ratio (12.00-20.00) Ratio Glucose (70-110) mg/dL POC Glucose (mg/dL) 102 H (75-99) mg/dL Calcium (8.7-10.3) mg/dL 01/30/20 01/30/20 01/30/20 Range/Units 05:19 05:19 05:19 RBC 3.19 L (4.30-5.90) m/uL Hgb 10.9 L (13.0-17.5) gm/dL Hct 35.7 L (39.0-53.0) % MCV 112.0 H (80.0-100.0) fL MCHC 30.5 L (31.0-37.0) g/dL Plt Count 131 L (150-450) k/uL Lymphocytes # (1.0-4.8) k/uL Lymphocytes # (Manual) 0.33 L (1.0-4.8) k/uL Macrocytosis Marked A PT 14.0 H (9.0-12.0) sec INR 1.4 H (<1.2) APTT 79.4 H (22.0-30.0) sec Sodium 133 L (135-145) mmol/L Potassium 5.8 H (3.5-5.5) mmol/L BUN 30.0 H (9.0-27.0) mg/dL Creatinine 3.6 H (0.6-1.5) mg/dL Est GFR (CKD-EPI)AfAm 17.3 L (60.0-200.0) Est GFR (CKD-EPI)NonAf 14.9 L (60.0-200.0) BUN/Creatinine Ratio 8.33 L (12.00-20.00) Ratio Glucose 121 H (70-110) mg/dL POC Glucose (mg/dL) (75-99) mg/dL Calcium 7.9 L (8.7-10.3) mg/dL 01/30/20 01/30/20 Range/Units 07:13 11:44 RBC (4.30-5.90) m/uL Hgb (13.0-17.5) gm/dL Hct (39.0-53.0) % MCV (80.0-100.0) fL MCHC (31.0-37.0) g/dL Plt Count (150-450) k/uL Lymphocytes # (1.0-4.8) k/uL Lymphocytes # (Manual) (1.0-4.8) k/uL Macrocytosis PT (9.0-12.0) sec INR (<1.2) APTT (22.0-30.0) sec Sodium (135-145) mmol/L Potassium (3.5-5.5) mmol/L BUN (9.0-27.0) mg/dL Creatinine (0.6-1.5) mg/dL Est GFR (CKD-EPI)AfAm (60.0-200.0) Est GFR (CKD-EPI)NonAf (60.0-200.0) BUN/Creatinine Ratio (12.00-20.00) Ratio Glucose (70-110) mg/dL POC Glucose (mg/dL) 111 H 138 H (75-99) mg/dL Calcium (8.7-10.3) mg/dL Assessment and Plan Assessment: This is a 79-year-old male with complex past medical history below presented to the emergency room with worsening shortness of breath and worsening ascites. Patient is currently placed on observation for further management of his medical problems noted below. 1. Worsening ascites, requiring monthly paracentesis. Seems like ascites is cardiac in origin according to patient. IR consulted. Plan for paracentesis on Friday. Albumin ordered 2. End-stage renal disease on hemodialysis, MWF scheduled, seen and evaluated by nephrology 3. History of mechanical aortic valve replacement, patient said that he has been holding his Coumadin for anticipated paracentesis. I Advised him that he should not be off of blood thinners. He recently established care with Dr. Benson after he moved from [place]. Echocardiogram done in cardiology office is not available for me to review. I will consult with Dr. Benson to figure out a strategy for this patient getting paracentesis without interruption in his anticoagulation. I told the patient that he needed to be admitted to the hospital for IV heparin treatment each time he needs paracentesis or we need to find him an interventional radiologist that is willing to do paracentesis while patient is therapeutic on Coumadin. 4. Acute systolic heart failure exacerbation, started on IV Lasix. Further fluid management with dialysis. 5. Underlying cardiomyopathy (unknown type) his EF of 25% status post AICD placement 6. Type 2 diabetes, continue home dose of insulin Today, patient lost his IV access and nursing staff were unable to obtain a new IV. I offered to help placing a peripheral IV using an ultrasound machine but unfortunately no ultrasonic machine is available in this hospital at this time. Anesthesia consulted to place a peripheral IV Patient is currently off of IV heparin and cardiology ordered one-time subcu Lovenox to get him covered for the day. After getting paracentesis tomorrow, we should come out with a better strategy for this patient to get his scheduled paracentesis every 3-4 weeks without interruption in his anticoagulation
[2020-01-30] MEDS ORDERED: HYDROcodone/APAP 5-325MG 1 EACH TAB PO PRN (15:39)
[2020-01-30] MEDS: carvediloL 3.125 MG TAB PO SCH (16:12)
[2020-01-30 16:55] LABS: Glucose,Whole Blood 133 mg/dL (75-99)
[2020-01-30] MEDS ORDERED: WARFARIN 0.5 MG TAB PO ONE (18:00)
[2020-01-30] MEDS ORDERED: ENOXAPARIN 100 MG/ML SYRINGE SQ ONE (18:00)
[2020-01-30 19:27] LABS: ALT 14 U/L (4-49); AST 29 U/L (17-59); African American GFR (CKD) 19 (>60 ml/min/1.73 sqM); Albumin/Globulin Ratio 0.9; Alkaline Phosphatase 124 U/L (38-126); Anion Gap 5 mmol/L; Blood Urea Nitrogen 29 mg/dL (9-20); Calcium 7.6 mg/dL (8.4-10.2); Carbon Dioxide 31 mmol/L (22-30); Chloride 95 mmol/L (98-107); Globulin 3.3 g/dL; Glucose 121 mg/dL (74-99); Non-African American GFR(CKD) 17 (>60 ml/min/1.73 sqM); Potassium 5.2 mmol/L (3.5-5.1); Sodium 131 mmol/L (137-145); Total Bilirubin 0.9 mg/dL (0.2-1.3); Total Protein 6.3 g/dL (6.3-8.2)
[2020-01-30 21:17] LABS: Glucose,Whole Blood 178 mg/dL (75-99)
[2020-01-30] MEDS: ATORVASTATIN 40 MG TAB PO SCH (21:27)
[2020-01-30] MEDS: INSULIN DETEMIR (LEVEMIR) 100 UNIT/ML SYR SQ SCH (21:58)
[2020-01-31 07:24] LABS: Glucose,Whole Blood 84 mg/dL (75-99)
[2020-01-31] MEDS: INSULIN ASPART (NovoLOG) 100 UNIT/ML VIAL SQ SCH ×4 (08:02→20:44)
[2020-01-31] MEDS: carvediloL 3.125 MG TAB PO SCH ×2 (08:02→15:45)
[2020-01-31] MEDS: MIDODRINE 5 MG TAB PO SCH ×3 (08:03→15:46)
[2020-01-31] MEDS: FUROSEMIDE 10 MG/ML 4 ML VIAL IV SCH ×2 (08:03→20:44)
[2020-01-31 08:39] LABS: HCT 37.5 % (39.0-53.0); HGB 11.2 gm/dL (13.0-17.5); Hypochromasia Marked; MCH 33.4 pg (25.0-35.0); MCHC 29.8 g/dL (31.0-37.0); Macrocytosis Marked; Mean Platelet Volume 7.5; Platelet Count 140 k/uL (150-450); RBC 3.35 m/uL (4.30-5.90); RDW 14.6 % (11.5-15.5); WBC 6.1 k/uL (3.8-10.6)
--- NOTE | 2020-01-31 09:10 | P.PN ---
Subjective Progress Note Date: 01/31/20 History of presenting illness This is a pleasant 79-year-old male past medical history significant for coronary artery disease status post bypass grafting, aortic valve replacement, chronic persistent atrial fibrillation on Coumadin, ischemic cardiomyopathy status post Medtronic AICD, COPD, end-stage renal disease on hemodialysis and dyslipidemia. He follows in the office with Dr. Armstrong. He recently moved here from [place] and established in the office earlier this month. An echocardiogram that was obtained while in and November revealed severe LV dysfunction with ejection fraction 30-35%, RV systolic dysfunction, prosthetic aortic valve with mild aortic regurgitation, moderate mitral and tricuspid regurgitation and mild pulmonary hypertension. The patient states he has a mechanical aortic valve. He has recurrent ascites requiring monthly paracentesis. He has been holding his Coumadin since Friday in anticipation of paracentesis. He presented to the emergency department at [facility] with complaints of abdominal distention and shortness of breath. He has yet to establish a routine for his paracentesis but he states last time it was done it was done at [facility] that he went there hoping to have it done. He was sent here for further evaluation. Patient was seen in consultation by Dr. Christopher over the weekend. He underwent a CT of his abdomen and pelvis which revealed a large right-sided pleural effusion, consolidation, atelectasis at the right lung bases, significant lung volume loss on the right, cardiomegaly, massive amounts of fluid in the peritoneal cavity surrounding the liver and spleen and extending down into the iliac vessels. He underwent a chest x-ray this morning which remains pending. At the time of my examination this morning, patient was complaining of abdominal discomfort, he does state that he feels short of breath but no more than his usual. They were able to get a left jugular IV in him. Blood pressure 92/50, heart rate in the 60s, 97% on 4 L of oxygen. White blood cell count 6.1, hemoglobin 11.2, platelet count 140. His weight today is down 6 kg. He did undergo dialysis yesterday. His Coumadin had been placed on hold for anticipation of a paracentesis and continues to be on hold. He did receive a one-time dose of Lovenox. Objective - Vital Signs Vital signs: Vital Signs Temp 97.4 F L 01/31/20 07:51 Pulse 64 01/31/20 07:51 Resp 17 01/31/20 07:51 BP 92/55 01/31/20 07:51 Pulse Ox 97 01/31/20 07:51 Intake & Output 01/30/20 01/31/20 01/31/20 18:59 06:59 18:59 Intake Total 21.7 Output Total 1500 Balance 21.7 -1500 Weight 83.2 kg Intake: Intake, IV Titration 21.7 Amount Heparin Sod,Pork in 0.45% 21.7 NaCl 25,000 unit In 0.45 % NaCl 1 250ml.bag @ 11. 223 UNITS/KG/HR 10 mls/hr IV .Q24H [facility] Rx#: [id number] Output: Hemodialysis 1500 Other: Voiding Method Toilet Toilet Urinal # Voids 1 1 - Exam PHYSICAL EXAMINATION: GENERAL: 79-year-old gentleman in no acute distress at the time of my examination HEENT: Head is atraumatic, normocephalic. Pupils equal, round. Sclera anicteric. Conjunctiva are clear. Mucous membranes of the mouth are moist. Neck is supple. There is no elevated jugular venous pressure. No carotid brui t is heard. HEART EXAMINATION: Heart S1 and S2 irregularly irregular with mechanical valve click is heard CHEST EXAMINATION: Lungs reveal diminished air entry to the bases, right greater than left, fine rales heard to the bases. ABDOMEN: [ Firm, distended, tender EXTREMITIES: 2+ peripheral pulses with trace to 1+ evidence of peripheral edema, bilateral erythema to the lower extremities . NEUROLOGIC [patient is awake, alert and oriented 3 - Labs CBC & Chem 7: 01/31/20 07:11 01/30/20 19:00 Labs: Abnormal Lab Results - Last 24 Hours (Table) 01/30/20 01/30/20 01/30/20 Range/Units 05:19 11:44 16:53 RBC (4.30-5.90) m/uL Hgb (13.0-17.5) gm/dL Hct (39.0-53.0) % MCV (80.0-100.0) fL MCHC (31.0-37.0) g/dL Plt Count (150-450) k/uL Macrocytosis APTT (22.0-30.0) sec Sodium 133 L (135-145) mmol/L Potassium 5.8 H (3.5-5.5) mmol/L Chloride (98-107) mmol/L Carbon Dioxide (22-30) mmol/L BUN 30.0 H (9.0-27.0) mg/dL Creatinine 3.6 H (0.6-1.5) mg/dL Est GFR (CKD-EPI)AfAm 17.3 L (60.0-200.0) Est GFR (CKD-EPI)NonAf 14.9 L (60.0-200.0) BUN/Creatinine Ratio 8.33 L (12.00-20.00) Ratio Glucose 121 H (70-110) mg/dL POC Glucose (mg/dL) 138 H 133 H (75-99) mg/dL Calcium 7.9 L (8.7-10.3) mg/dL Albumin (3.5-5.0) g/dL 01/30/20 01/30/20 01/30/20 Range/Units 19:00 19:00 21:16 RBC (4.30-5.90) m/uL Hgb (13.0-17.5) gm/dL Hct (39.0-53.0) % MCV (80.0-100.0) fL MCHC (31.0-37.0) g/dL Plt Count (150-450) k/uL Macrocytosis APTT 35.2 H (22.0-30.0) sec Sodium 131 L (135-145) mmol/L Potassium 5.2 H (3.5-5.5) mmol/L Chloride 95 L (98-107) mmol/L Carbon Dioxide 31 H (22-30) mmol/L BUN 29 H (9.0-27.0) mg/dL Creatinine 3.27 H (0.6-1.5) mg/dL Est GFR (CKD-EPI)AfAm (60.0-200.0) Est GFR (CKD-EPI)NonAf (60.0-200.0) BUN/Creatinine Ratio (12.00-20.00) Ratio Glucose 121 H (70-110) mg/dL POC Glucose (mg/dL) 178 H (75-99) mg/dL Calcium 7.6 L (8.7-10.3) mg/dL Albumin 3.0 L (3.5-5.0) g/dL 11/23/20 Range/Units 07:11 RBC 3.35 L (4.30-5.90) m/uL Hgb 11.2 L (13.0-17.5) gm/dL Hct 37.5 L (39.0-53.0) % MCV 112.0 H (80.0-100.0) fL MCHC 29.8 L (31.0-37.0) g/dL Plt Count 140 L (150-450) k/uL Macrocytosis Marked A APTT (22.0-30.0) sec Sodium (135-145) mmol/L Potassium (3.5-5.5) mmol/L Chloride (98-107) mmol/L Carbon Dioxide (22-30) mmol/L BUN (9.0-27.0) mg/dL Creatinine (0.6-1.5) mg/dL Est GFR (CKD-EPI)AfAm (60.0-200.0) Est GFR (CKD-EPI)NonAf (60.0-200.0) BUN/Creatinine Ratio (12.00-20.00) Ratio Glucose (70-110) mg/dL POC Glucose (mg/dL) (75-99) mg/dL Calcium (8.7-10.3) mg/dL Albumin (3.5-5.0) g/dL Assessment and Plan Plan: ASSESSMENT and PLAN #1 Acute on chronic systolic heart failure #2 Recurrent ascites of unknown etiology, denies liver disease #3 Pleural effusion #4 Coronary artery disease s/p bypass grafting, REYNA to LAD 2012 #5 Ischemic cardiomyopathy status post AICD #6 Hyperkalemia #7 Hypertension #8 Dyslipidemia #9 Valvular heart disease status post mechanical aortic valve replacement #10 COPD #11 End stage renal disease on hemodialysis Plan Patient is anticipating a paracentesis today, we will need to reinitiate heparin and subsequently Coumadin because of the patient's history of mechanical aortic valve. We will also discuss with the nephrology the benefits of IV Lasix being that the patient's urine production is significantly low to nil. Further recommendations to follow. DNP note has been reviewed, I agree with a documented findings and plan of care. Patient was seen and examined.
[2020-01-31] MEDS: ALBUMIN HUMAN 25% 50 ML in EMPTY BAG 1 BAG IVPB SCH ×4 (09:32→13:39)
[2020-01-31 09:53] LABS: Band Neutrophils % 1 %; Eosinophils # (M) 0.37 k/uL (0-0.7); Lymphocytes # (M) 0.49 k/uL (1.0-4.8); Monocytes # (M) 0.73 k/uL (0-1.0); Myelocytes # (M) 0.06 k/uL (0); Myelocytes % 1 %; Neutrophils % (M) 73 %; Nucleated Red Blood Cells 0 /100 WBC (0-0); Total Cells Counted 200
[2020-01-31 09:54] LABS: Anisocytosis (M) Present; Poikilocytosis (M) Present
[2020-01-31 09:55] LABS: Target Cells Present
[2020-01-31 10:57] LABS: INR 1.28 (0.90-1.11); Prothrombin Time 13.6 sec (9.9-11.9)
[2020-01-31 11:12] LABS: African American GFR (CKD) 16.7 (60.0-200.0); Anion Gap 9.3 mmol/L (4.00-12.00); BUN/Creat Ratio 7.57 Ratio (12.00-20.00); Calcium 7.8 mg/dL (8.7-10.3); Carbon Dioxide 25.7 mmol/L (21.6-31.8); Magnesium 2.1 mg/dL (1.5-2.4); Non-African American GFR(CKD) 14.4 (60.0-200.0); Phosphorus 4.2 mg/dL (2.4-5.1); Potassium 5.2 mmol/L (3.5-5.5)
--- NOTE | 2020-01-31 12:08 | XR ---
EXAMINATION TYPE: XR chest 2V DATE OF EXAM: 01/31/2020 CLINICAL HISTORY: follow up pleural effusion. TECHNIQUE: Frontal and lateral view of the chest. COMPARISON: [facility] CT abdomen pelvis 01/28/2020 FINDINGS: Left-sided AICD, aortic valvular prosthesis, and sternotomy wires. There is fracturing of the superiormost sternotomy wire. Right-sided internal jugular hemodialysis catheter distal tip over the expected region of the cavoatrial junction. Complete opacification of the right hemithorax, with scattered right cardiac silhouette. No pneumothorax. No displaced osseous fractures. IMPRESSION: Large right pleural effusion with complete opacification of the right hemithorax.
[2020-01-31 12:19] LABS: Hepatitis B Surface AB- Quant 3.5 mIU/mL; Hepatitis B Surface Antibody Non-Reactive (Non-Reactive); Hepatitis B Surface Antigen Non-Reactive (Non-Reactive)
[2020-01-31 12:24] LABS: Glucose,Whole Blood 117 mg/dL (75-99)
--- NOTE | 2020-01-31 13:22 | P.PN ---
Subjective Patient is seen in follow-up for end-stage renal disease. He is maintained on hemodialysis on Friday schedule. Had paracentesis this morning with 7.8 L drained. Feels better. Chest x-ray shows right-sided pleural effusion. He is eager to go home. Vital signs are stable. General: The patient appeared well nourished and normally developed. HEENT: Head exam is unremarkable. Neck is without jugular venous distension. LUNGS: Breath sounds decreased. HEART: Rate and Rhythm are regular. ABDOMEN: Nontender. EXTREMITITES: 2+ edema. Objective - Vital Signs Vital signs: Vital Signs Temp 97.9 F 01/31/20 10:06 Pulse 68 01/31/20 12:20 Resp 16 01/31/20 12:20 BP 110/65 01/31/20 12:20 Pulse Ox 100 01/31/20 12:20 Intake & Output 01/30/20 01/31/20 01/31/20 18:59 06:59 18:59 Intake Total 21.7 Output Total 1500 Balance 21.7 -1500 Weight 83.2 kg Intake: Intake, IV Titration 21.7 Amount Heparin Sod,Pork in 0.45% 21.7 NaCl 25,000 unit In 0.45 % NaCl 1 250ml.bag @ 11. 223 UNITS/KG/HR 10 mls/hr IV .Q24H [facility] Rx#: [id number] Output: Hemodialysis 1500 Other: Voiding Method Toilet Toilet Urinal # Voids 1 1 - Labs CBC & Chem 7: 01/31/20 07:11 01/31/20 07:11 Labs: Abnormal Lab Results - Last 24 Hours (Table) 01/30/20 01/30/20 01/30/20 Range/Units 16:53 19:00 19:00 RBC (4.30-5.90) m/uL Hgb (13.0-17.5) gm/dL Hct (39.0-53.0) % MCV (80.0-100.0) fL MCHC (31.0-37.0) g/dL Plt Count (150-450) k/uL Lymphocytes # (Manual) (1.0-4.8) k/uL Myelocytes # (Manual) (0) k/uL Macrocytosis PT (9.9-11.9) sec INR (0.90-1.11) APTT 35.2 H (22.0-30.0) sec Sodium 131 L (137-145) mmol/L Potassium 5.2 H (3.5-5.1) mmol/L Chloride 95 L (98-107) mmol/L Carbon Dioxide 31 H (22-30) mmol/L BUN 29 H (9-20) mg/dL Creatinine 3.27 H (0.66-1.25) mg/dL Est GFR (CKD-EPI)AfAm (60.0-200.0) Est GFR (CKD-EPI)NonAf (60.0-200.0) BUN/Creatinine Ratio (12.00-20.00) Ratio Glucose 121 H (74-99) mg/dL POC Glucose (mg/dL) 133 H (75-99) mg/dL Calcium 7.6 L (8.4-10.2) mg/dL Albumin 3.0 L (3.5-5.0) g/dL 01/30/20 01/31/20 01/31/20 Range/Units 21:16 07:11 07:11 RBC 3.35 L (4.30-5.90) m/uL Hgb 11.2 L (13.0-17.5) gm/dL Hct 37.5 L (39.0-53.0) % MCV 112.0 H (80.0-100.0) fL MCHC 29.8 L (31.0-37.0) g/dL Plt Count 140 L (150-450) k/uL Lymphocytes # (Manual) 0.49 L (1.0-4.8) k/uL Myelocytes # (Manual) 0.06 H (0) k/uL Macrocytosis Marked A PT 13.6 H (9.9-11.9) sec INR 1.28 H (0.90-1.11) APTT (22.0-30.0) sec Sodium (137-145) mmol/L Potassium (3.5-5.1) mmol/L Chloride (98-107) mmol/L Carbon Dioxide (22-30) mmol/L BUN (9-20) mg/dL Creatinine (0.66-1.25) mg/dL Est GFR (CKD-EPI)AfAm (60.0-200.0) Est GFR (CKD-EPI)NonAf (60.0-200.0) BUN/Creatinine Ratio (12.00-20.00) Ratio Glucose (74-99) mg/dL POC Glucose (mg/dL) 178 H (75-99) mg/dL Calcium (8.4-10.2) mg/dL Albumin (3.5-5.0) g/dL 01/31/20 01/31/20 Range/Units 07:11 12:22 RBC (4.30-5.90) m/uL Hgb (13.0-17.5) gm/dL Hct (39.0-53.0) % MCV (80.0-100.0) fL MCHC (31.0-37.0) g/dL Plt Count (150-450) k/uL Lymphocytes # (Manual) (1.0-4.8) k/uL Myelocytes # (Manual) (0) k/uL Macrocytosis PT (9.9-11.9) sec INR (0.90-1.11) APTT (22.0-30.0) sec Sodium 134 L (137-145) mmol/L Potassium (3.5-5.1) mmol/L Chloride (98-107) mmol/L Carbon Dioxide (22-30) mmol/L BUN 28.0 H (9-20) mg/dL Creatinine 3.7 H (0.66-1.25) mg/dL Est GFR (CKD-EPI)AfAm 16.7 L (60.0-200.0) Est GFR (CKD-EPI)NonAf 14.4 L (60.0-200.0) BUN/Creatinine Ratio 7.57 L (12.00-20.00) Ratio Glucose (74-99) mg/dL POC Glucose (mg/dL) 117 H (75-99) mg/dL Calcium 7.8 L (8.4-10.2) mg/dL Albumin (3.5-5.0) g/dL Assessment and Plan Plan: Assessment: 1. End-stage renal disease maintained on hemodialysis on Friday schedule via permacath. He does have a maturing AV fistula. 2. Acute on chronic systolic CHF with ejection fraction of 25% status post AICD placement. 3. Ascites requiring paracentesis monthly. Had paracentesis this morning was 7.8 L drained. 4. Chronic hypotension maintained on midodrine. 5. Diabetes mellitus. 6. Hyperkalemia secondary to chronic kidney disease. Improved postdialysis. 7. Right-sided pleural effusion. 8. Status post mechanical aortic valve replacement maintained on anticoagulation. Plan: Hemodialysis today with goal 2 liters ultrafiltration. Maintain midodrine. Consider thoracentesis for the effusion. Patient will be given a standing order for paracentesis and albumin infusion outpatient. Case discussed with the primary team. If bridged with Lovenox, dose needs to be adjusted for renal function.
--- NOTE | 2020-01-31 14:26 | P.DS ---
Providers Date of admission: 01/28/20 17:06 Expected date of discharge: 01/31/20 Attending physician: Eve Hernandez MD Consults: 01/28/20 17:06 Consult Physician Urgent Consulting Provider: [facility] Consult Reason/Comments: Paracentesis Do you want consulting provider notified?: Yes 01/29/20 05:51 Consult Physician Routine Consulting Provider: Jose Kc Consult Reason/Comments: Hemodialysis Do you want consulting provider notified?: Yes, Notify in am 01/29/20 15:53 Consult Physician Routine Consulting Provider: Rajesh Armstrong Consult Reason/Comments: Mechanical aortic valve? Do you want consulting provider notified?: Yes Primary care physician: Rita Fontenot MD Hospital Course: 1. Worsening ascites, requiring monthly paracentesis. 2. End-stage renal disease on hemodialysis, MWF 3. History of mechanical aortic valve replacement, 4. Acute systolic heart failure exacerbation 5. Underlying ischemic cardiomyopathy (unknown type) his EF of 25% status post AICD placement 6. Type 2 diabetes, continue home dose of insulin This is a 79-year-old male with complex past medical history below presented to the emergency room with worsening shortness of breath and worsening ascites. Patient was admitted and observed off of his coumadin, and had heparin gtt for bridging. Unfortunately access became a complication, so patient was given a bridging dose of lovenox, and underwent EJ placement via anesthesia. He underwent successful paracentesis which pulled out 7.8L of fluid, and reported feeling back to his normal baseline. He underwent his routine dialysis, which pulled another 2L via UF. Regarding his bridging, patient was determined to be better candidate for lovenox, renally adjusted, after discussion with nephrology and cardiology, given that patient did not want to stay inpatient beyond today, and that he had good/close follow up. Furthermore, access issues and blood checks required for heparin gtt made this an unfavorable option. Bleeding risk and stroke risk along with need for bridging to decrease stroke risk was discussed with the patient and he expressed understanding. Specifically, I also counseled him on increased bleeding risk with lovenox bridging, and he expressed understanding of this risk. Appropriate follow ups were arranged. Patient will re-bridge to coumadin, and I advised that he does not require reversing his AC for paracentesis, but only should he develop bleeding complications. I prescribed q3 week paracentesis for him on discharge with 25gm albumin infusions before and after. Nephrology follow up arranged. Pulmonology referral given. Patient will follow up with PCP who will extend his daily lovenox as needed until patient is therapeutic with coumadin. I spent more than 30 minutes preparing this discharge Assessment: Gen: awake, alert HEENT: normocephalic, atraumatic, good hearing acuity, moist mucous membranes Resp: good air exchange, no accessory muscle us CVS: good distal perfusion x 4, RRR, no murmurs, clicks, gallops GI: soft, NTTP, ND : no SPT, no CVAT, sol catheter not present MSK: + pitting edema, no clubbing Neuro: non-focal, no sensory deficits, appropriate tone Psych: cooperative, euthymic mood Plan - Discharge Summary Discharge Rx Participant: Yes New Discharge Prescriptions: New HYDROcodone/APAP 5-325MG [Bradford 5-325] 1 each PO Q4HR PRN tab PRN Reason: Pain INSULIN ASPART (NovoLOG) [NovoLOG (formulary)] 0 unit SQ ACHS vial Enoxaparin [Lovenox] 80 mg SQ Q12H #4 syringe Continue Cholecalciferol [Vitamin D3 (25 Mcg = 1000 Iu)] 1,000 unit PO HS Warfarin Sodium 2.5 mg PO SUMOTUWETHSA Multivitamins, Thera [Multivitamin (formulary)] 1 tab PO DAILY Albuterol Sulfate [Ventolin HFA] 1 - 2 puff INHALATION RT-Q6H PRN PRN Reason: Shortness Of Breath allopurinoL [Zyloprim] 100 mg PO DAILY Insulin Glargine,Hum.rec.anlog [Lantus Solostar] 23 unit SQ HS Atorvastatin Calcium [Lipitor] 40 mg PO HS hydrOXYzine HCL [Atarax] 25 mg PO TID PRN PRN Reason: Itching Midodrine HCl [ProAmatine] 10 mg PO TID PRN PRN Reason: low blood pressure Carvedilol [Coreg] 3.125 mg PO BID Bee Pollen 550 mg PO DAILY metOLazone [Zaroxolyn] 5 mg PO DAILY PRN #30 tab PRN Reason: Edema Changed Furosemide [Lasix] 80 mg PO BID PRN #120 tab PRN Reason: Edema Discharge Medication List Albuterol Sulfate [Ventolin HFA] 1 - 2 puff INHALATION RT-Q6H PRN 01/28/20 [History] Atorvastatin Calcium [Lipitor] 40 mg PO HS 01/28/20 [History] Bee Pollen 550 mg PO DAILY 01/28/20 [History] Carvedilol [Coreg] 3.125 mg PO BID 01/28/20 [History] Cholecalciferol [Vitamin D3 (25 Mcg = 1000 Iu)] 1,000 unit PO HS 01/28/20 [History] Insulin Glargine,Hum.rec.anlog [Lantus Solostar] 23 unit SQ HS 01/28/20 [History] Midodrine HCl [ProAmatine] 10 mg PO TID PRN 01/28/20 [History] Multivitamins, Thera [Multivitamin (formulary)] 1 tab PO DAILY 01/28/20 [History] Warfarin Sodium 2.5 mg PO SUMOTUWETHSA 01/28/20 [History] allopurinoL [Zyloprim] 100 mg PO DAILY 01/28/20 [History] hydrOXYzine HCL [Atarax] 25 mg PO TID PRN 01/28/20 [History] Enoxaparin [Lovenox] 80 mg SQ Q12H #4 syringe 01/31/20 [Rx] Furosemide [Lasix] 80 mg PO BID PRN #120 tab 01/31/20 [Rx] HYDROcodone/APAP 5-325MG [Bradford 5-325] 1 each PO Q4HR PRN tab 01/31/20 [Rx] INSULIN ASPART (NovoLOG) [NovoLOG (formulary)] 0 unit SQ ACHS vial 01/31/20 [Rx] metOLazone [Zaroxolyn] 5 mg PO DAILY PRN #30 tab 01/31/20 [Rx] Follow up Appointment(s)/Referral(s): Rita Fontenot MD [Primary Care Provider] - 1-2 days Cony Yanez MD [STAFF PHYSICIAN] - 1 Week Discharge Disposition: HOME SELF-CARE Plan of Treatment: 1) For subtherapeutic INR, patient will be given 80mg SQ Lovenox daily with instructions to continue home dose coumadin; INR will be followed up during his dialysis sessions, and extension of lovenox given accordingly 2) For recurrent Ascites, patient was counseled to schedule his q3-4 week appointments for therapeutic thoracentesis 3) For ESRD, he will continue MWF iHD, with hopeful plans to transition dialysis center to [facility] 4) For pulmonary effusion, patient was instructed to schedule appointment with pulmonary physician in coming weeks.
[2020-01-31] MEDS ORDERED: ENOXAPARIN 80 MG/0.8 ML SYRINGE SQ STA (16:12)
[2020-01-31 16:42] LABS: Glucose,Whole Blood 119 mg/dL (75-99)
--- NOTE | 2020-01-31 17:08 | US ---
EXAMINATION TYPE: US paracentesis abd w/image DATE OF EXAM: 01/31/2020 CLINICAL HISTORY: Ascites COMPARISON: [facility] CT abdomen pelvis 01/28/2020 FEED HANDLER: Dr. Mckenna Patel PROCEDURE: Preprocedure preliminary ultrasound imaging demonstrates large volume ascites. The procedure was discussed with the patient. The risks, complications, benefits, and alternatives we re discussed and any questions were answered. Informed consent was obtained. The patient was placed s upine on the ultrasound table and prepped and draped in the usual sterile fashion. All elements of maximal barrier technique were utilized. Under ultrasound guidance, access into the right lower quadrant was obtained with a 5 Yi one-step centesis catheter. Approximately 7.8 liters of clear santosh-colored serous fluid was removed. Catheter was removed and st erile bandage was applied. The patient was stable throughout the procedure and remained stable upon d ischarge from Department of Radiology. IMPRESSION: Successful ultrasound-guided paracentesis, with removal of 7.8 liters of clear santosh-colored serous f luid.
[2020-01-31 17:32] LABS: Appearance,BF Bloody
[2020-01-31 17:33] LABS: Nucleated Cells, Body Fluid 100 /uL; RBC, Body Fluid 18380 /uL
[2020-01-31 17:34] LABS: Mononuclear WBC,Body Fluid 91 %; Polynuclear WBC,Body Fluid 9 %; Total Cells Counted,Body Fluid 100
[2020-01-31] MEDS ORDERED: WARFARIN 5 MG TAB PO ONE (18:00)
[2020-01-31 20:37] LABS: Glucose,Whole Blood 200 mg/dL (75-99)
[2020-01-31] MEDS: ATORVASTATIN 40 MG TAB PO SCH (20:44)
[2020-01-31] MEDS: INSULIN DETEMIR (LEVEMIR) 100 UNIT/ML SYR SQ SCH (20:45)
[2020-02-01 01:30] LABS: Total Protein, Body Fluid 2420 mg/dL
[2020-02-01 02:41] LABS: LDH, Body Fluid Source Paracentesis Fluid
[2020-02-01 07:04] LABS: Glucose,Whole Blood 93 mg/dL (75-99)
[2020-02-01] MEDS: carvediloL 3.125 MG TAB PO SCH (08:07)
[2020-02-01] MEDS: INSULIN ASPART (NovoLOG) 100 UNIT/ML VIAL SQ SCH ×2 (08:07→11:38)
[2020-02-01] MEDS: MIDODRINE 5 MG TAB PO SCH ×2 (08:08→11:35)
[2020-02-01] MEDS: FUROSEMIDE 10 MG/ML 4 ML VIAL IV SCH (08:08)
--- NOTE | 2020-02-01 11:00 | ECHOF ---
Referral Reason:sob, valve eval MEASUREMENTS -------- HEIGHT: 175.3 cm WEIGHT: 88.9 kg BP: 112/71 IVSd: 1.5 cm (0.6 - 1.1) LVIDd: 5.6 cm (3.9 - 5.3) LVPWd: 1.0 cm (0.6 - 1.1) EDV(Teich): 154 ml IVSs: 1.4 cm LVIDs: 4.7 cm LVPWs: 1.4 cm %IVS Thck: -5 % ESV(Teich): 104 ml EF(Teich): 32 % %FS: 15 % SV(Teich): 50 ml RVIDd: 5.2 cm (< 3.3) IVC: 19.90 mm LVLd A4C: 7.2 cm LVEDV MOD A4C: 115 ml LVLs A4C: 7.1 cm LVESV MOD A4C: 85 ml LVEF MOD A4C: 26 % SV MOD A4C: 30 ml LALs A4C: 6.4 cm LAAs A4C: 24.2 cm LAESV A-L A4C: 77 ml LAESV MOD A4C: 73 ml LALs A2C: 5.9 cm LAAs A2C: 29.6 cm LAESV A-L A2C: 127 ml LAESV MOD A2C: 124 ml LAESV(A-L): 104 ml LAESV Index (A-L): 50.63 ml/m Ao Diam: 2.9 cm (2.0 - 3.7) LA Diam: 4.1 cm (2.7 - 3.8) AV Cusp: 1.8 cm (1.5 - 2.6) EPSS: 1.4 cm MV E Mogran: 1.14 m/s MV DecT: 223 ms MV Dec Tensas: 5.1 m/s MV A Morgan: 0.35 m/s MV E/A Ratio: 3.31 MV PHT: 65 ms MR Vmax: 3.95 m/s MR maxP.49 mmHg AV Vmax: 1.87 m/s AV maxP.02 mmHg AV Vmax: 2.01 m/s AV Vmean: 1.48 m/s AV maxP.22 mmHg AV meanP.64 mmHg AV Env.Ti: 249 ms AV VTI: 37.0 cm AR Vmax: 3.44 m/s AR maxP.44 mmHg AR PHT: 860 ms AR Dec Time: 2964 ms AR Dec Tensas: 1.2 m/s TR Vmax: 3.21 m/s TR maxP.14 mmHg RAP: 15.00 mmHg RVSP: 56.14 mmHg MV EF SLOPE: 103.44 mm/s (70 - 150) MV EXCURSION: 20.28 mm (> 18.000) FINDINGS -------- Paced rhythm. This was a technically good study. The left ventricular size is normal. There is mild concentric left ventricular hypertrophy. Overa ll left ventricular systolic function is moderately impaired with, an EF between 35 - 40 %. There i s paradoxical/dysynergic septal motion consistent with right ventricular volume overload and/or eleva deuce right ventricular end-diastolic pressure. Left ventricular fillimg pressure cannot be estimated due to Atrial fibrillation. The right ventricle is severely enlarged. LA is severely dilated >40 ml/m2 The right atrial size is normal. Peak/mean gradient across the Aortic Valve is 16.22mmHg / 9.64mmHg. There is trivial vida-prostheti c regurgitation of the bioprosthetic aortic valve. Normally functioning mechanical prosthetic valve . The mitral valve is normal. The mitral valve leaflets are mildly thickened. Mild mitral regurgita tion is present. The tricuspid valve appears structurally normal. Moderate tricuspid regurgitation present. There is moderate pulmonary hypertension. The right ventricular systolic pressure, as measured by Doppler , is 56.14mmHg. There is no pulmonic regurgitation present. The aortic root size is normal. The inferior vena cava is mildly dilated. There is no pericardial effusion. CONCLUSIONS -------- 1. Paced rhythm. 2. The left ventricular size is normal. 3. There is mild concentric left ventricular hypertrophy. 4. Overall left ventricular systolic function is moderately impaired with, an EF between 35 - 40 %. 5. There is paradoxical/dysynergic septal motion consistent with right ventricular volume overload an d/or elevated right ventricular end-diastolic pressure. 6. Left ventricular fillimg pressure cannot be estimated due to Atrial fibrillation. 7. The right ventricle is severely enlarged. 8. LA is severely dilated >40 ml/m2 9. Peak/mean gradient across the Aortic Valve is 16.22mmHg / 9.64mmHg. 10. There is trivial vida-prosthetic regurgitation of the bioprosthetic aortic valve. 11. Normally functioning mechanical prosthetic valve. 12. The mitral valve leaflets are mildly thickened. 13. Mild mitral regurgitation is present. 14. Moderate tricuspid regurgitation present. 15. There is moderate pulmonary hypertension. 16. The right ventricular systolic pressure, as measured by Doppler, is 56.14mmHg. 17. The inferior vena cava is mildly dilated. 18. There is no pericardial effusion. ANCHOR TACKER: Eunice Calvin RDCS
--- NOTE | 2020-02-01 11:17 | P.PN ---
Subjective Patient is seen in follow-up for end-stage renal disease. He is maintained on hemodialysis on Friday schedule. Had paracentesis yesterday with 7.8 L drained. Feels fair at this time. He wants to go home. Vital signs are stable. General: The patient appeared well nourished and normally developed. HEENT: Head exam is unremarkable. Neck is without jugular venous distension. LUNGS: Breath sounds decreased. HEART: Rate and Rhythm are regular. ABDOMEN: Nontender. EXTREMITITES: 1+ edema. Objective - Vital Signs Vital signs: Vital Signs Temp 97.5 F L 02/01/20 06:49 Pulse 71 02/01/20 06:49 Resp 18 02/01/20 08:00 BP 105/59 02/01/20 06:49 Pulse Ox 97 02/01/20 06:49 Intake & Output 01/31/20 02/01/20 02/01/20 18:59 06:59 18:59 Output Total 1999 Balance -1999 Weight 75.86 kg Output: Hemodialysis 1999 Other: Voiding Method Toilet Urinal # Voids 2 2 2 # Bowel Movements 1 - Labs CBC & Chem 7: 01/31/20 07:11 01/31/20 07:11 Labs: Abnormal Lab Results - Last 24 Hours (Table) 01/31/20 01/31/20 01/31/20 Range/Units 07:11 12:22 16:40 Sodium 134 L (135-145) mmol/L BUN 28.0 H (9.0-27.0) mg/dL Creatinine 3.7 H (0.6-1.5) mg/dL Est GFR (CKD-EPI)AfAm 16.7 L (60.0-200.0) Est GFR (CKD-EPI)NonAf 14.4 L (60.0-200.0) BUN/Creatinine Ratio 7.57 L (12.00-20.00) Ratio POC Glucose (mg/dL) 117 H 119 H (75-99) mg/dL Calcium 7.8 L (8.7-10.3) mg/dL 01/31/20 Range/Units 20:36 Sodium (135-145) mmol/L BUN (9.0-27.0) mg/dL Creatinine (0.6-1.5) mg/dL Est GFR (CKD-EPI)AfAm (60.0-200.0) Est GFR (CKD-EPI)NonAf (60.0-200.0) BUN/Creatinine Ratio (12.00-20.00) Ratio POC Glucose (mg/dL) 200 H (75-99) mg/dL Calcium (8.7-10.3) mg/dL Assessment and Plan Plan: Assessment: 1. End-stage renal disease maintained on hemodialysis on Friday schedule via permacath. He does have a maturing AV fistula. 2. Acute on chronic systolic CHF with ejection fraction of 25% status post AICD placement. 3. Ascites requiring paracentesis monthly. Had paracentesis January 30 with 7.8 L drained. 4. Chronic hypotension maintained on midodrine. 5. Diabetes mellitus. 6. Hyperkalemia secondary to chronic kidney disease. Improved postdialysis. 7. Right-sided pleural effusion. 8. Status post mechanical aortic valve replacement maintained on anticoag ulation. Plan: Hemodialysis tomorrow with UF as able to tolerae. Maintain midodrine. Patient now has a standing order for paracentesis and albumin infusion outpatient. Case discussed with the primary team. If bridged with Lovenox, dose needs to be adjusted for renal function. Patient will follow-up with his primary care physician this week to get INR checked.
[2020-02-01 11:25] LABS: Glucose,Whole Blood 153 mg/dL (75-99)
[2020-02-01 11:57] VITALS: BP 104/65; PULSE 70; RESP 17; TEMP 97.8
--- NOTE | 2020-02-01 12:58 | P.PN ---
Progress Note - Text Progress Note Date: 01/31/20 Please see first addendum of discharge summary for this day's progress note
[2020-02-02 12:46] LABS: Albumin, Fluid Source Paracentesis Fluid
--- NOTE | 2020-02-03 | CDI ---
Documentation Clarification Form Date: 02/03/2020 From: Igor Christopher Phone: If you have a question about this query, please contact Valarie Buck [employer] Manager at [phone] between 8am and 5pm. Admit Date: 01/31/2020 Discharge Date: 02/01/2020 Patient Name: Jed French Visit Number: [id number] ATTENTION: The Clinical Documentation Specialists (CDI) and [facility] Coding Staff appreciate your assistance in clarifying documentation. Please respond to the clarification below the line at the bottom and electronically sign. The CDI & [facility] Coding staff will review the response and follow-up if needed. Please note: Queries are made part of the Legal Health Record. If you have any questions, please contact the author of this message via ITS. Dear Renea Salgado MD., This is a 79-year-old male with complex past medical history below presented to the emergency room with worsening shortness of breath and worsening ascites. History/Risk Factors: CHF, ESRD, Hyperlipidemia, Dialysis End-stage renal disease maintained on hemodialysis on Friday schedule via permacat.He does have a maturing AV fistula. Acute on chronic systolic CHF with ejection fraction of 25% status post AICD placement. Ascites requiring paracentesis monthly.Had paracentesis January 30 with 7.8 L drained. Worsening ascites, requiring monthly paracentesis. Per H&P Worsening ascites It was unclear to me why patient has the ascites, he states that it is secondary to his bad heart. Per 01/29 Progress note " Burton Crandall MD "Seems like ascites is cardiac in origin according to patient". In your professional opinion, can you please clarify Ascites related to cardiac origin? YES NO Other, please specify Unable to determine _ Yes it is secondary to heart and kidney failure MTDD
== END 2020-02-01 13:00 | disposition home health service (06) | DRG 291 ==
LOC: EC 16:35 → 5NMEDONC 17:06 → INTOOBSV 17:06 → 5NMEDONC 18:59 → OBSVTOIN 01-31 13:34
PROVIDERS: ADMIT Internal Medicine; ATTEND Internal Medicine
PROC: 0W9G3ZZ Drainage of Peritoneal Cavity, Percutaneous Approach (ICD-10-PCS; principal; 2020-01-31)
PROC: 5A1D70Z Performance of Urinary Filtration, Intermittent, Less than 6 Hours Per Day (ICD-10-PCS; 2020-01-31)
DX: I13.2 Hypertensive heart and chronic kidney disease with heart failure and with stage 5 chronic kidney disease, or end stage renal disease (principal); N18.6 End stage renal disease; I50.23 Acute on chronic systolic (congestive) heart failure; R18.8 Other ascites; J98.11 Atelectasis; I48.19 Other persistent atrial fibrillation; M10.9 Gout, unspecified; J44.9 Chronic obstructive pulmonary disease, unspecified; I27.20 Pulmonary hypertension, unspecified; I25.10 Atherosclerotic heart disease of native coronary artery without angina pectoris; I25.5 Ischemic cardiomyopathy; I08.1 Rheumatic disorders of both mitral and tricuspid valves; E87.5 Hyperkalemia; E78.5 Hyperlipidemia, unspecified; I95.89 Other hypotension; E11.22 Type 2 diabetes mellitus with diabetic chronic kidney disease; Z79.4 Long term (current) use of insulin; Z79.899 Other long term (current) drug therapy; Z79.01 Long term (current) use of anticoagulants; Z82.49 Family history of ischemic heart disease and other diseases of the circulatory system; Z87.891 Personal history of nicotine dependence; Z95.1 Presence of aortocoronary bypass graft; Z95.2 Presence of prosthetic heart valve; Z99.2 Dependence on renal dialysis; Z95.810 Presence of automatic (implantable) cardiac defibrillator
CPT/HCPCS: 49083; 71046; 80048; 80053; 82042; 83615; 83735; 84100; 84157; 85025; 85610; 85730; 86706; 87340; 89050; 90935; 93005; 93306; 99284